=== PATIENT | male | born 1970 ===

== ENCOUNTER 2018-09-25 14:55 | Emergency (ER) | payer SELFPAY ==
[2018-09-25 15:09] VITALS: BMI 30.4
[2018-09-25 15:10] VITALS: O2SAT 98
--- NOTE | 2018-09-25 16:30 | C.PDOC ---
History Of Present Illness 48 year old male presents to the ED complaining of right buttock pain radiating to leg for 3 days. He has had a h/o similar symptoms when he was diagnosed with sciatica. He had negative XRs at the time and was given flexeril. The pain resolved until three days ago. Notes he does some lifting at work. Pain is aggravated by movement. Denies any trauma/injuries. Denies any fever, chills, incontinence, urinary symptoms, weakness, numbness, leg swelling, or skin color changes. Time Seen by Provider: 09/25/18 15:54 Chief Complaint (Nursing): Lower Extremity Problem/Injury History Per: Patient History/Exam Limitations: no limitations Onset/Duration Of Symptoms: Days (3) Current Symptoms Are (Timing): Still Present Past Medical History Reviewed: Historical Data, Nursing Documentation, Vital Signs Vital Signs: Last Vital Signs Temp 99.2 F 09/25/18 15:08 Pulse 100 H 09/25/18 15:08 Resp 18 09/25/18 15:08 BP 130/83 09/25/18 15:08 Pulse Ox 98 09/25/18 15:08 - Medical History PMH: No Chronic Diseases Surgical History: No Surg Hx Family History: States: No Known Family Hx - Social History Hx Alcohol Use: No Hx Substance Use: No - Immunization History Hx Tetanus Toxoid Vaccination: No Hx Influenza Vaccination: No Hx Pneumococcal Vaccination: No Review Of Systems Except As Marked, All Systems Reviewed And Found Negative. Constitutional: Negative for: Fever, Chills Genitourinary: Negative for: Dysuria, Incontinence, Hematuria Musculoskeletal: Positive for: Leg Pain (right ) Neurological: Negative for: Weakness, Numbness Physical Exam - Physical Exam Appears: Non-toxic, No Acute Distress Skin: Warm, Dry Head: Normacephalic Eye(s): bilateral: Normal Inspection, EOMI Nose: Normal Oral Mucosa: Moist Neck: Normal ROM, Supple Chest: Symmetrical Respiratory: No Accessory Muscle Use Gastrointestinal/Abdominal: Soft, No Tenderness Back: No CVA Tenderness, No Vertebral Tenderness, Paraspinal Tenderness ((+) right sided buttock tenderness and right hip tenderness) Extremity: Normal ROM, No Pedal Edema, Capillary Refill (less than 2 sec to right leg), No Deformity, No Swelling Extremity: Bilateral: Atraumatic, Normal Color And Temperature, Normal ROM Pulses: Left Dorsalis Pedis: Normal, Right Dorsalis Pedis: Normal Neurological/Psych: Oriented x3, Normal Speech, Normal Motor, Normal Sensation Gait: Steady ED Course And Treatment O2 Sat by Pulse Oximetry: 98 (RA) Pulse Ox Interpretation: Normal Progress Note: Naproxen ordered. On reassessment, patient resting comfortably, no longer having back pain, no fever, no bony tenderness, no numbness, no weakness, no abdominal pain. Patient is ambulatory in the emergency department with no discomfort. Patient was instructed to follow up with physician/clinic in 1-2 days for further evaluation or return to ED if symptoms persist or worsen. Disposition - Disposition Referrals: [facility] [Outside] Disposition: HOME/ ROUTINE Disposition Time: 16:58 Condition: STABLE Additional Instructions: Vaya a morillo mdico o la clnica en 2-5 isabel sin falta, para mas evaluacin. [place] los medicamentos marivel indicado. Volver a la raghavendra de emergencia en cualquier momento si los sntomas persisten o empeoran. 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 - Scribe Statement The provider has reviewed the documentation as recorded by the Teteibnneka Salcedo All medical record entries made by the Scribe were at my direction and personally dictated by me. I have reviewed the chart and agree that the record accurately reflects my personal performance of the history, physical exam, medical decision making, and the department course for this patient. I have also personally directed, reviewed, and agree with the discharge instructions and disposition.
[2018-09-25] MEDS ORDERED: Naproxen 550 mg Tab PO STA (16:40)
[2018-09-25] MEDS ORDERED: Naproxen 550 mg Tab PO ONE (16:53)
[2018-09-25 17:24] VITALS: BP 141/84; PULSE 89; RESP 19; TEMP 99
== END 2018-09-25 17:25 | disposition home or self-care (01) ==
LOC: C.ER 14:55
DX: M54.9 Dorsalgia, unspecified (principal)